=== PATIENT | male | born 1975 | race Caucasian/White ===

== ENCOUNTER 2019-06-17 15:44 | Inpatient (IN) | payer MEDICAID ==
[~2019-06-17] VITALS: Ht 165.1 cm; Wt 61.8 kg
[2019-06-17] MEDS ORDERED: ZYPREXA10 MG PO (16:13)
[2019-06-17] MEDS ORDERED: PHENOBARBITAL30 MG PO (16:14)
[2019-06-17] MEDS ORDERED: CELEXA20 MG PO (16:14)
[2019-06-17] MEDS ORDERED: ATIVAN1 MG PO (16:14)
[2019-06-17] MEDS ORDERED: METOPROLOL TART25 MG PO (16:15)
[2019-06-17] MEDS ORDERED: NEURONTIN 300300 MG PO (16:15)
[2019-06-17] MEDS ORDERED: NORVASC5 MG PO (16:15)
[2019-06-17] MEDS ORDERED: CHRONULAC30 ML PO (16:15)
[2019-06-17] MEDS ORDERED: MINIPRESS2 MG PO (16:15)
[2019-06-17] MEDS ORDERED: DILANTIN100 MG PO ×2 (16:15→23:23)
[2019-06-17 16:27] VITALS: BP 139/96
[2019-06-17 16:28] LABS: BASOPHILS 0 % (0-2); EOSINOPHILS 0.1 % (0-7); HEMATOCRIT 40.3 % (42.0-54.0); HEMOGLOBIN 14.6 g/dL (13.5-17.5); IMMATURE GRANULOCYTES 0.2 % (0-5); LYMPHOCYTES 8.9 % (15-50); MCH 32.2 pg (26.0-34.0); MCHC 36.2 g/dL (31.0-37.0); MCV 88.8 fL (80.0-100.0); MEAN PLATELET VOLUME 8.5 fL (7.4-10.4); MONOCYTES 5.9 % (2-11); NEUTROPHILS 84.9 % (40-80); PLATELET COUNT 282 10x3/uL (130-400); RBC 4.54 10x6/uL (4.20-6.10); RDW 13.7 % (11.5-14.5); WBC 10.5 10x3/uL (4.8-10.8)
[2019-06-17 17:01] LABS: ALBUMIN 4.6 g/dL (3.4-5.0); ALKALINE PHOSPHATASE 87 U/L (46-116); ALT (SGPT) 43 U/L (10-68); BILIRUBIN - TOTAL 0.26 mg/dL (0.2-1.3); CALC OSMOLALITY 270 mosm/kg (275-300); CALCIUM 9.4 mg/dL (8.5-10.1); CARBON DIOXIDE 19.4 mmol/L (21.0-32.0); CHLORIDE - SERUM 101 mmol/L (98-107); CREATININE - SERUM 1.1 mg/dL (0.6-1.3); GLUCOSE 150 mg/dL (74-106); MAGNESIUM - SERUM 1.7 mg/dL (1.8-2.4); PROTEIN - SERUM 8.1 g/dL (6.4-8.2); SODIUM 135 mmol/L (136-145); UREA NITROGEN 7 mg/dL (7-18); eGFR NON AFRICAN AMERICAN 78 mL/min (90-120)
[2019-06-17 18:04] LABS: INR 1.09 (0.85-1.17); PROTIME 13.6 SECONDS (11.6-15.0)
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
[2019-06-17 20:00] VITALS: BP 131/90
[2019-06-17 20:08] VITALS: BP 136/85; Ht 165.1 cm; Wt 61.8 kg
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
--- NOTE | 2019-06-17 20:10 | NUR ---
PT BEING ADMITTED TO ICU 2301 SIMRAN GONZALEZN AT BEDSIDE ASSESSING AND SPEAKING WITH PATIENT NEW ORDERS NOTED.
--- NOTE | 2019-06-17 20:30 | NUR ---
ANSWERED PTS CALL LIGHT HE IS REQUESTING PAIN MED AND ATIVAN THAT THE DR TOLD HIM HE ORDERED IN ER. INFORMED PT WOULD CHECK EMAR AND ORDERS STILL TRYING TO GET ADMISSION DATA AND ASSESSMENTS IN. PT VERBALIZES UNDERSTANDING
--- NOTE | 2019-06-17 20:47 | NUR ---
PT REQUESTING PAIN MED INFORMED UNABLE TO GIVE YET HE THEN ASKED FOR ATIVAN. MEDICATED WITH ATIVAN 1 MG SIVP PER EMAR PRN ORDERS.
[2019-06-17 21:00] VITALS: BP 131/93
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
--- NOTE | 2019-06-17 21:15 | NUR ---
PTS SIGNIFICANT OTHER IWONA OUT TO NURSES STATION STATING THAT PT IS IN EXTREME PAIN AND NEEDS PAIN MEDICATION. INFORMED IWONA THAT RN HAS ALREADY INFORMED PT COULD NOT GIVE UNTIL IT WAS DUE. IWONA VERBALIZED UNDERSTANDING. RN WENT INTO ROOM TO REITERATE TO PT ABOUT PAIN MED DUE TIME, PT WAS SLEEPING WITH EYES CLOSED AND SNORING.
--- NOTE | 2019-06-17 21:21 | NUR ---
PT REQUESTING NICODERM PATCH THAT HE AND SIMRAN VALDEZ HAD TALKED ABOUT. PER EMAR DUE TOMORROW AM GIVEN NOW PT STATED HE NEEDS IT NOW AND DOES NOT HAVE ANOTHER PATCH ANYWHERE ON HIS BODY.
--- NOTE | 2019-06-17 21:49 | NUR ---
THIS RN WAS PUSHING PAIN MED SIMRAN VALDEZ CAME BACK AROUND AND INFORMED PT THAT ANOTHER XRAY THIS ONE OF ABD WAS NEEDED DUE TO SOMETHING SEEN ON THE CHEST FILM. PT BECAME AGITATED IN LOUD TONE AND SAID "IM NOT GONNA BE GENTLE WITH THEM BECAUSE I AM GOING TO SLEEP". PTS VISITORS WERE INFORMED THAT VISITING HOURS WERE OVER AT 10 AND NEED TO LET PAIN MEDICATION WORK.
[2019-06-17 22:00] VITALS: BP 150/29
--- NOTE | 2019-06-17 22:00 | NUR ---
WHEN SIMRAN VALDEZ AND VISITORS WERE OUT OF ROOM INFORMED PT REASON ANOTHER XRAY WAS NEEDED TO R/O ANY PROBLEMS SINCE PT WAS GOING TO SURGERY TOMORROW. PT VERBALIZED UNDERSTANDING
--- NOTE | 2019-06-17 22:15 | NUR ---
RADIOLOGY HERE FOR THE KUB PT TOLERATED AND COOPERATED WITH NO ISSUES
--- NOTE | 2019-06-17 22:30 | NUR ---
PTS O2 SAT ALARMING AT 89-91% PT SLEEPING SOUNDLY OPENS EYES WITH VERBAL STIMULI AND O2 SAT UP TO 98% INFORMED NEED TO PLACE O2 SINCE PT SATS HAD DROPPED WITH MEDICATIONS ON BOARD. O2 PLACED PER NC AT 2LPM INFORMED OF CONCERN DUE TO RESP DEPRESSION WITH MEDS.
--- NOTE | 2019-06-17 22:50 | NUR ---
CHARGE NURSE EDEN GARCIA SPEAKING TO SIMRAN VALDEZ VIA PHONE AND GIVEN RADOLOGY REPORT FROM KUB FILM. SIMRAN STATED HE WOULD PUT ORDERS IN TO CONITNUE PTS HOME MED OF LACTULOSE. PT AWARE THAT WITH SURGERY IN AM NPO AT MIDNIGHT HE VERBALIZES UNDERSTANDING
[2019-06-17 23:00] VITALS: BP 142/101
--- NOTE | 2019-06-17 23:00 | NUR ---
REASSESSMENT MADE NO CHANGES PT RESTING QUIETLY AWAKENS EASILY TO VERBAL STIMULI REQUESTS PAIN MED INFORMED UNABLE TO GIVE IT YET IT IS ORDERED NEEDED Q4 HOURS AND THAT IF PT IS SLEEPING HE WILL NOT BE WAKENED TO GET PAIN MED. PT CONTINUES TO DRIFT TO SLEEP IN MIDDLE OF CONVERSATIONS. DROWSY. SITTER AT BEDSIDE CPOC
--- NOTE | 2019-06-17 23:15 | NUR ---
LOOKED IN ON PATIENT VSS. RESTING QUIETLY WITH EYES CLOSED CPOC
[2019-06-17] MEDS ORDERED: TOPROL XL50 MG PO (23:24)
[2019-06-17] MEDS ORDERED: ZYPREXA5 MG PO (23:26)
[2019-06-18] VITALS (27 sets, daily range): BP systolic 124–158; BP diastolic 81–118
--- NOTE | 2019-06-18 00:19 | NUR ---
PT ANGRY AND AGITATED STATING HE WANTS HIS MEDICATION NOW. INFORMED THAT PAIN MEDICATION NOT DUE YET. HE SAID THEN GIVE ME MY ATIVAN NOW. INFORMED THAT THIS NURSE IS CONCERNED WITH OVERMEDICATION SINCE HE HAS DRIFTED TO SLEEP IN THE MIDDLE OF CONVERSATIONS WITH MYSELF WELL WHEN EDEN GARCIA CHARGE NURSE WAS TALKING WITH HIM. PTS SITTER ALSO STATED HE HAD BEEN DRIFTING IN AND OUT OF SLEEP.
--- NOTE | 2019-06-18 00:46 | NUR ---
PT AGITATED YELLING ANGRY WANTS HIS PAIN MEDICATION. ATTEMPTS TO EDUCATE AND INFORM PT OF PAIN MANAGEMENT WITH A FRACTURE, MEDICATION IS ORDERED ON NEEDED BASIS Q 4 HOURS IN HIS CASE IN HOPES TO MINIMIZE PAIN. LOUDLY STATES I SHOULD NOT BE HURTING AND IF DOCTOR ORDERED IT I SHOULD BE GETTING IT EVEN WHEN I AM SLEEPING. REITERATED CONCERNS ABOUT OVER MEDICATING. PT CONTINUES TO GET MORE AGITATED AND DEMANDING PAIN MED INFORMED HIM I COULD NOT GIVE YET HE STATED GIVE ME THE ATIVAN THEN WHEN IT WAS TIME FOR HIS PAIN MED TO GIVE IT TO HIM EVEN IF HE WAS SLEEPING. MEDICATED WITH THE PRN ATIVAN SIVP BUT INFORMED COULD NOT GIVE PAIN MED WHILE PT SLEEPING AND THAT THIS NURSE WOULD NOT BE AWAKENED TO GET PAIN MED.
--- NOTE | 2019-06-18 00:52 | NUR ---
PTS SITTER WAS RELIEVED FOR BREAK PT ASKED NEW SITTER FOR ATIVAN SHE INFORMED HIM SHE JUST GAVE YOU THE ATIVAN PT STATED NO SHE DID NOT GIVE ME ANYTHING. THIS NURSE WALKED BACK IN ROOM AND INFORMED PT INDEED HE HAD JUST BEEN GIVEN THE ATIVAN AND STATED I SCANNED YOUR ARMBAND AND THE ATIVAN VIAL. 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 CPOC
--- NOTE | 2019-06-18 01:15 | NUR ---
PT ASKING SITTER WHAT TIME IT WAS BECAUSE HE WAS NOT GOING TO SLEEP UNTIL HE HAD PAIN MED.
--- NOTE | 2019-06-18 01:47 | NUR ---
DIANA RADFORD GEOLOGICAL SCIENCE TEACHER ON UNIT TO PULL MED LACTULOSE FROM [facility] SINCE IT WAS ORDERED AFTER PHARMACY WAS CLOSED. PT HAD REQUESTED TO SPEAK WITH DATA GOVERNANCE ANALYST EARLIER WHEN HE WAS ANGRY ABOUT MEDICATIONS SHE WENT TO HIS ROOM HE WAS SLEEPING SITTER REMAINS AT BEDSIDE. DIANA DID NOT WANT TO WAKE PT STATED SHE WOULD COME BACK IF HE REQUESTED WHEN AWAKE
--- NOTE | 2019-06-18 02:30 | NUR ---
PT RESTING QUIETLY WITH EYES CLOSED VSS O2 SAT 97% NO DISTRESS NOTED SITTER REMAINS AT BEDSIDE
--- NOTE | 2019-06-18 03:25 | NUR ---
ANSWERED PTS CALL LIGHT HE IS SOBBING LOUDLY YELLING "I AM DYING OF PAIN GIVE ME MY PAIN MED AND ATIVAN NOW" PT MEDICATED WITH PRN PAIN MED INFORMED WOULD NEED TO WAIT AND ASSESS BEFORE ATIVAN DO NOT WANT TO OVERMEDICATE PT. PT SCREAMING "IM HURTING AND BRING ME MY IM LEAVING THIS PLACE". PT INFORMED OF VISITING HOURS AND INFORMED TO TRY TO CALM DOWN IN ORDER FOR THE PAIN MEDICATION TO WORK.
--- NOTE | 2019-06-18 03:27 | NUR ---
SHEET METAL DUCT WORKER SUPERVISOR HERE FOR AM BLOOD DRAW. PT SCREAMING "NO NOT RIGHT NOW NOT UNTIL I GET MY MEDICINE I AM HURTING" JANIE INFORMED PT SHE JUST GAVE YOU PAIN MED I WAS RIGHT HERE AND WATCHED HER SHE TOLD YOU SHE WAS GIVING YOUR PAIN MED. THIS RN WENT IN AND SPOKE WITH PATIENT AND STATED YOU ARE HAVING SURGERY THIS MORNING WE HAVE TO HAVE LABS BEFORE PROCEDURES HE SAID AGAIN HE DID NOT GET MED. INFORMED PT I WAS JUST IN HERE I SCANNED YOUR ARM BAND AND THE VIAL WELL THE LACTULOSE THAT WAS ORDERED WHICH YOU ALSO TOOK. PT THEN ALLOWED LAB TO DRAW
--- NOTE | 2019-06-18 03:30 | NUR ---
COOLING PAN TENDER STATED SHE COULD NOT FIND SITE TO DRAW THAT SHE WOULD BE BACK WITH VEINFINDER TO ASSISST. PT CALM AND STATES THE PAIN IS ALMOST ALL THE WAY GONE BUT AGAIN ASKS FOR ATIVAN. WILL MONITOR AND ASSESS FOR MEDICATIONS NEEDED.
--- NOTE | 2019-06-18 03:36 | NUR ---
PT SPEAKING CALMLY NO DISTRESS NOTED ASKING SITTER TO PUT TV ON A DIFFERENT CHANNEL
--- NOTE | 2019-06-18 03:45 | NUR ---
ANSWERED PTS CALL LIGHT HE IS REQUESTING ICE CHIPS INFORMED AGAIN ABOUT NPO STATUS HE THEN SAID WELL I NEED IV FLUIDS AT LEAST, PT WAS INFORMED HE ALREADY HAD IVF GOING.
--- NOTE | 2019-06-18 04:51 | NUR ---
ANSWERED PTS CALL LIGHT HE IS DEMANDING HIS ATIVAN AND ASKING FOR PAIN MED DESPITE MULTIPLE TIMES EXPLAINING SHEDULE OF PRN MEDS. SEE EMAR VSS SITTER REMAINS AT BEDSIDE
--- NOTE | 2019-06-18 05:30 | NUR ---
PT RESTING EYES CLOSED CPOC
--- NOTE | 2019-06-18 07:00 | NUR ---
ANSWERED PTS CALL LIGHT HE IS REQUESTING PAIN MED NOT TIME YET REPORT TO ONCOMING SHIFT
--- NOTE | 2019-06-18 07:00 | NUR ---
DAY SHIFT SERGEY UNSUCCESSFUL AT DRAWING LABS DAY SHIFT NURSE AWARE
--- NOTE | 2019-06-18 07:54 | NUR ---
PT YELLING OUT ABOUT WANTING A NURSE IN AND WANTING HIS PAIN MEDS. INSTRUCTED SCHEDULING. IV PAIN MED GIVEN. PT EXPLANING THAT ATIVAN AND DILAUDID WORK TOGETHER. INSTRUCTED SCHEDULING RE: ATNETO.
--- NOTE | 2019-06-18 08:41 | NUR ---
JANIE AT BS. DR LEYVA HERE ON ROUNDS THIS AM. SPOKE TO ANESTHESIA RE: OR TODAY. DR LARKIN.
[2019-06-18 09:00] LABS: BASOPHILS 0 % (0-2); EOSINOPHILS 0.5 % (0-7); HEMATOCRIT 36.9 % (42.0-54.0); HEMOGLOBIN 12.7 g/dL (13.5-17.5); IMMATURE GRANULOCYTES 0.2 % (0-5); LYMPHOCYTES 16.2 % (15-50); MCH 31.5 pg (26.0-34.0); MCHC 34.4 g/dL (31.0-37.0); MEAN PLATELET VOLUME 8.5 fL (7.4-10.4); MONOCYTES 10.3 % (2-11); NEUTROPHILS 72.8 % (40-80); PLATELET COUNT 237 10x3/uL (130-400); RBC 4.03 10x6/uL (4.20-6.10); RDW 14.2 % (11.5-14.5)
[2019-06-18 09:15] LABS: ALBUMIN 3.6 g/dL (3.4-5.0); ALKALINE PHOSPHATASE 82 U/L (46-116); ALT (SGPT) 37 U/L (10-68); BILIRUBIN - TOTAL 0.25 mg/dL (0.2-1.3); CALC OSMOLALITY 271 mosm/kg (275-300); CALCIUM 8.1 mg/dL (8.5-10.1); CARBON DIOXIDE 25.9 mmol/L (21.0-32.0); CHLORIDE - SERUM 103 mmol/L (98-107); CREATININE - SERUM 0.7 mg/dL (0.6-1.3); GLUCOSE 107 mg/dL (74-106); MAGNESIUM - SERUM 1.6 mg/dL (1.8-2.4); PHENYTOIN (DILANTIN) 6.1 ug/mL (10.0-20.0); PHOSPHOROUS 2.1 mg/dL (2.5-4.9); POTASSIUM - SERUM 3.9 mmol/L (3.5-5.1); PROTEIN - SERUM 6.8 g/dL (6.4-8.2); SODIUM 137 mmol/L (136-145); UREA NITROGEN 7 mg/dL (7-18); eGFR NON AFRICAN AMERICAN > 90 mL/min (90-120)
[2019-06-18 09:17] LABS: APTT 31.2 SECONDS (22.8-39.4); INR 1.06 (0.85-1.17); PROTIME 13.3 SECONDS (11.6-15.0)
[2019-06-18 09:23] LABS: MCV 91.6 fL (80.0-100.0); WBC 5.8 10x3/uL (4.8-10.8)
--- NOTE | 2019-06-18 10:12 | NUR ---
PREOP MEDS GIVEN. PT DISTRUPTIVE AND IS YELLING AT EVERONE. DR SAMSON HERE AT BS.
[2019-06-18 10:17] LABS: APPEARANCE CLEAR (CLEAR); BILIRUBIN NEGATIVE (NEGATIVE); COLOR YELLOW (YELLOW); GLUCOSE 50 mg/dL (NEGATIVE); KETONE NEGATIVE (NEGATIVE); NITRITE NEGATIVE (NEGATIVE); PROTEIN NEGATIVE (NEGATIVE); UROBILINOGEN NORMAL (NORMAL)
[2019-06-18 10:34] LABS: UDS - AMPHET NEGATIVE QUAL (NEGATIVE); UDS - BARB POSITIVE QUAL (NEGATIVE); UDS - BENZO NEGATIVE QUAL (NEGATIVE); UDS - COCAINE NEGATIVE QUAL (NEGATIVE); UDS - OPIATE POSITIVE QUAL (NEGATIVE); UDS - PCP NEGATIVE QUAL (NEGATIVE); UDS - THC NEGATIVE QUAL (NEGATIVE)
--- NOTE | 2019-06-18 10:45 | NUR ---
PT TO OR. PREOP MEDS GIVEN, CONCENTS ON CHART.
--- NOTE | 2019-06-18 12:30 | NUR ---
PT BACK FROM OR. VSS.
--- NOTE | 2019-06-18 13:38 | NUR ---
PT RESTING QUIETLY.
[2019-06-18] MEDS ORDERED: BIKTARVY 50-201 EACH PO (15:21)
--- NOTE | 2019-06-18 17:31 | NUR ---
PT RESTING QUIETLY. VSS.
--- NOTE | 2019-06-18 17:54 | NUR ---
PT C/O PAIN AND ANXIETY. PAIN MEDS GIVEN AND ATIVAN.
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
--- NOTE | 2019-06-18 20:00 | NUR ---
PTS (IWONA) HERE FOR VISITATION UPDATE GIVEN. PT RESTING QUIETLY WITH EYES CLOSED ENCOURAGED TO LET PT REST. IWONA SITTING QUIETLY AT BEDSIDE READING.
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
--- NOTE | 2019-06-18 21:10 | NUR ---
THIS NURSE AND CHARGE NURSE EDEN GARCIA AT BEDSIDE ATTEMPTING TO GIVE PT HIS MEDICATIONS HE YELLS "IM LEAVING RIGHT NOW", "GIVE ME MY MEDICINE NOW I NEED MY PAIN MEDICINE". THEN STATES "I AM NOT TAKING ANYTHING UNTIL I GET MY PAIN MEDICINE".
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
[2019-06-19] VITALS (23 sets, daily range): BP systolic 114–138; BP diastolic 68–90
--- NOTE | 2019-06-19 06:00 | NUR ---
AWAITING DAY SHIFT ADVERTISING SUPERVISOR TO DRAW LABS
--- NOTE | 2019-06-19 07:00 | NUR ---
BUTCHER TRYING TO DRAW BLOOD PT STATES HE WILL NOT UNTIL HE GETS ALL HIS MEDICINES. INFORMED DAY NURSE JUST FINISHING REPORT AND WILL GET MEDS SOON ABLE BUT LAB WORK IMPORTANT.
[2019-06-19 07:39] LABS: BASOPHILS 0 % (0-2); EOSINOPHILS 0.2 % (0-7); HEMATOCRIT 35.9 % (42.0-54.0); HEMOGLOBIN 12.2 g/dL (13.5-17.5); IMMATURE GRANULOCYTES 0.1 % (0-5); LYMPHOCYTES 17.7 % (15-50); MCH 31.2 pg (26.0-34.0); MCV 91.8 fL (80.0-100.0); MEAN PLATELET VOLUME 8.9 fL (7.4-10.4); MONOCYTES 10.6 % (2-11); NEUTROPHILS 71.4 % (40-80); PLATELET COUNT 216 10x3/uL (130-400); RBC 3.91 10x6/uL (4.20-6.10); RDW 13.9 % (11.5-14.5)
[2019-06-19 07:41] LABS: WBC 8.1 10x3/uL (4.8-10.8)
--- NOTE | 2019-06-19 07:43 | NUR ---
PT RESTING QUIETLY, AWAKENS EASILY AND BEGINS TO TAKE HIS ARIANNA WRAP OFF. REORIENTED AND REAPPLIED DSNG.
[2019-06-19 08:01] LABS: ALBUMIN 3.5 g/dL (3.4-5.0); ALKALINE PHOSPHATASE 96 U/L (46-116); ALT (SGPT) 34 U/L (10-68); CALCIUM 8.3 mg/dL (8.5-10.1); CARBON DIOXIDE 27.8 mmol/L (21.0-32.0); CHLORIDE - SERUM 99 mmol/L (98-107); CREATININE - SERUM 0.6 mg/dL (0.6-1.3); MAGNESIUM - SERUM 1.5 mg/dL (1.8-2.4); POTASSIUM - SERUM 3.9 mmol/L (3.5-5.1); PROTEIN - SERUM 6.6 g/dL (6.4-8.2); SODIUM 134 mmol/L (136-145); eGFR NON AFRICAN AMERICAN > 90 mL/min (90-120)
[2019-06-19 08:06] LABS: CALC OSMOLALITY 268 mosm/kg (275-300); GLUCOSE 163 mg/dL (74-106); PHOSPHOROUS 3.3 mg/dL (2.5-4.9); UREA NITROGEN 5 mg/dL (7-18)
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
--- NOTE | 2019-06-19 11:15 | NUR ---
IV INFILTRATED. ATTEMPTS TO RESITE FAILED BY SEVERAL ICU NURSES. ATTEMPTS TO CONTACT DR CRAIN FAILED. CALLED CELL PHONE AND OFFICE. NO ANSWERS.
--- NOTE | 2019-06-19 11:25 | NUR ---
DR LEYVA HERE. REPORTED TO HER THAT NO IV OBTAINED.
--- NOTE | 2019-06-19 11:51 | NUR ---
SPOKE TO DR CRAIN. REPORTED THAT THERE IS NO IV ACCESS.
--- NOTE | 2019-06-19 12:40 | NUR ---
PT RESTING QUIETLY, VSS, AWAKENS EASILY AND TAKES PO MEDS.
--- NOTE | 2019-06-19 15:50 | NUR ---
HBG BATH GIVEN AND LINEN CHANGE DONE.
--- NOTE | 2019-06-19 17:00 | NUR ---
READBACK TELEPHONE VERBAL ORDER RECIEVED BY DR LEYVA FOR PT TO TRANSFER TO INPATIENT PSYCH PLACEMENT AT [place].
--- NOTE | 2019-06-19 17:39 | NUR ---
REC'D NOTICE FROM [facility] IN [place] THAT PT DOES HAVE ROOM.
--- NOTE | 2019-06-19 21:39 | NUR ---
NUPUR PCT WITH [facility] UNIT CALLED [facility] ICU, UPDATE GIVEN, NO FURTHER AT THIS TIME
--- NOTE | 2019-06-19 21:45 | NUR ---
[facility] AT BEDSIDE, REPORT GIVEN, PT ASSISTED TO STREATCHER, NO S/S OF PAIN OR DISTRESS NOTED, [facility] CALLED SPOKE WITH NUPUR MCCLAIN AND INFORMED PT ENROUT WITH [facility]
--- NOTE | 2019-06-20 09:41 | MORECARE ---
CASE MANAGEMENT DISCHARGE SUMMARY PATIENT: AUGUSTINE RENEE UNIT: [id number] ADM DATE: 06/17/19 AGE: 43 : [birth year] SEX: M ROOM/BED: D.2301 AUTHOR: MAGALY MORSE PHYSICIAN: REFERRING PHYSICIAN: NII LEYVA MD DATE OF SERVICE: 06/20/19 Discharge Plan Patient Name: AUGUSTINE RENEE [facility] [facility] 1975 Planned Disposition: Anticipated Discharge Date: Discharge Date: 06/19/2019 Expected LOS: Initial Reviewer: [email or web address] Initial Review Date: 06/17/2019 Generated: 06/20/19 10:41 am Comments DCP- Discharge Planning Updated by [email or web address]: Aida Ramsey on 06/19/19 4:[address] CM faxed chart information to [facility] #[phone]. Spoke with Mario and she states the patients' information has already been faxed in. Aida Ramsey RN Patient Name: AUGUSTINE RENEE Page [phone] at 0941 All edits/amendments must be made on the electronic document DICTATION DATE: 06/20/19939 FIBER LOCKING SUPERVISOR: TAIWO 06/20/19939 RPT#: [id number] DC DATE:06/19/19 STATUS: DIS IN [facility] [address] [place] [address] END OF REPORT
--- NOTE | 2019-06-20 09:49 | MORECARE ---
CASE MANAGEMENT DISCHARGE SUMMARY PATIENT: AUGUSTINE RENEE UNIT: [id number] ADM DATE: 06/17/19 AGE: 43 : [birth year] SEX: M ROOM/BED: D.2301 AUTHOR: MAGALY MORSE PHYSICIAN: REFERRING PHYSICIAN: NII LEYVA MD DATE OF SERVICE: 06/20/19 Discharge Plan Patient Name: AUGUSTINE RENEE Facility: [facility]:[place] : 1975 Planned Disposition: Anticipated Discharge Date: Discharge Date: 06/19/2019 Expected LOS: Initial Reviewer: [email or web address] Initial Review Date: 06/17/2019 Generated: 06/20/19 10:49 am Comments DCP- Discharge Planning Updated by [email or web address]: Aida Ramsey on 06/19/19 4:[address] CM faxed chart information to [facility] #[phone]. Spoke with Mario and she states the patients' information has already been faxed in. Aida Ramsey RN Last DP export: 06/20/19 8:41 a Patient Name: AUGUSTINE RENEE Page [phone] at 0949 All edits/amendments must be made on the electronic document DICTATION DATE: 06/20/19948 PARLIAMENTARY ARCHIVIST: TAIWO 06/20/19948 RPT#: [id number] DC DATE:06/19/19 STATUS: DIS IN [place] [address] [place] [address] END OF REPORT
== END 2019-06-19 21:45 | DRG 511 ==
LOC: D.ER 15:44 → D.ICU 18:28
PROVIDERS: Family Medicine; Orthopaedic Surgery; ADMIT Family Medicine; ATTEND Family Medicine
PROC: 01N50ZZ Release Median Nerve, Open Approach (ICD-10-PCS; principal; 2019-06-18 10:50)
PROC: 0PSH04Z Reposition Right Radius with Internal Fixation Device, Open Approach (ICD-10-PCS; 2019-06-18 10:50)
DX: S52.501A Unspecified fracture of the lower end of right radius, initial encounter for closed fracture (principal); E87.1 Hypo-osmolality and hyponatremia; G56.01 Carpal tunnel syndrome, right upper limb; W19.XXXA Unspecified fall, initial encounter; F20.9 Schizophrenia, unspecified; F41.8 Other specified anxiety disorders; E83.42 Hypomagnesemia; I10 Essential (primary) hypertension; G62.9 Polyneuropathy, unspecified; K74.60 Unspecified cirrhosis of liver; G40.909 Epilepsy, unspecified, not intractable, without status epilepticus